=== PATIENT | female | born 1975 | race Asian ===

== ENCOUNTER 2017-03-09 01:36 | Emergency (ER) | payer OTHER ==
[~2017-03-09] VITALS: Ht 182.9 cm; Wt 128.4 kg
[2017-03-09 03:22] VITALS: BP 129/92; TEMP 98.3
== END 2017-03-09 03:23 | disposition home or self-care (01) ==
LOC: ED 01:36
DX: R51 Headache (principal); I10 Essential (primary) hypertension
CPT/HCPCS: 99283

== ENCOUNTER 2017-04-29 17:26 | Emergency (ER) | payer OTHER ==
[~2017-04-29] VITALS: Ht 182.9 cm; Wt 117.9 kg
[2017-04-29 17:38] VITALS: BP 131/98; TEMP 98.7
== END 2017-04-29 18:38 | disposition home or self-care (01) ==
LOC: ED 17:26
DX: K21.9 Gastro-esophageal reflux disease without esophagitis (principal)

== ENCOUNTER 2017-06-20 01:39 | Emergency (ER) | payer OTHER ==
[~2017-06-20] VITALS: Ht 182.9 cm; Wt 124.3 kg
[2017-06-20 02:34] VITALS: BP 132/90; TEMP 98.7
== END 2017-06-20 02:35 | disposition home or self-care (01) ==
LOC: ED 01:39
DX: I10 Essential (primary) hypertension (principal); R51 Headache
CPT/HCPCS: 99282

== ENCOUNTER 2017-10-07 23:05 | Emergency (ER) | payer OTHER ==
[~2017-10-07] VITALS: Ht 182.9 cm; Wt 122.5 kg
[2017-10-08 01:10] VITALS: BP 149/93; TEMP 99
== END 2017-10-08 01:10 | disposition home or self-care (01) ==
LOC: ED 23:05
DX: J32.9 Chronic sinusitis, unspecified (principal); Z72.0 Tobacco use
CPT/HCPCS: 99282

== ENCOUNTER 2018-02-23 23:54 | Emergency (ER) | payer OTHER ==
[~2018-02-23] VITALS: Ht 182.9 cm; Wt 124.7 kg
[2018-02-24 00:12] VITALS: TEMP 98.4
[2018-02-24 02:21] VITALS: BP 138/82
== END 2018-02-24 02:24 | disposition home or self-care (01) ==
LOC: ED 23:54
PROC: 2W3QX1Z Immobilization of Right Lower Leg using Splint (ICD-10-PCS; principal; 2018-02-23)
DX: S93.401A Sprain of unspecified ligament of right ankle, initial encounter (principal); S96.911A Strain of unspecified muscle and tendon at ankle and foot level, right foot, initial encounter; Z87.828 Personal history of other (healed) physical injury and trauma; W19.XXXA Unspecified fall, initial encounter
CPT/HCPCS: 96372; 99283; J1885; J2405; L4350

== ENCOUNTER 2018-02-27 17:09 | Emergency (ER) | payer OTHER ==
[~2018-02-27] VITALS: Ht 182.9 cm; Wt 129.3 kg
[2018-02-27 17:13] VITALS: TEMP 97.8
[2018-02-27 18:08] VITALS: BP 145/87
== END 2018-02-27 18:08 | disposition home or self-care (01) ==
LOC: ED 17:09
DX: R22.0 Localized swelling, mass and lump, head (principal); T46.4X5A Adverse effect of angiotensin-converting-enzyme inhibitors, initial encounter
CPT/HCPCS: 96372; 99282; J1200

== ENCOUNTER 2018-11-20 15:53 | Emergency (ER) | payer OTHER ==
[~2018-11-20] VITALS: Ht 182.9 cm; Wt 113.4 kg
[2018-11-20 16:05] VITALS: BP 170/91; TEMP 100.8
[2018-11-20 16:51] LABS: PLATELET COUNT 242 K/uL (152-353)
[2018-11-20 17:16] LABS: POTASSIUM 3.9 mmol/L (3.6-5.2)
== END 2018-11-20 18:30 | disposition home or self-care (01) ==
LOC: ED 15:53
PROVIDERS: Emergency Medicine
DX: J06.9 Acute upper respiratory infection, unspecified (principal); J11.1 Influenza due to unidentified influenza virus with other respiratory manifestations
CPT/HCPCS: 80053; 81025; 85027; 87502; 87651; 99283

== ENCOUNTER 2018-11-20 23:53 | Emergency (ER) | payer OTHER ==
[~2018-11-20] VITALS: Ht 182.9 cm; Wt 124.7 kg
[2018-11-21 00:14] VITALS: BP 131/87; TEMP 98.5
== END 2018-11-21 00:44 | disposition home or self-care (01) ==
LOC: ED 23:53
DX: J11.1 Influenza due to unidentified influenza virus with other respiratory manifestations (principal)
CPT/HCPCS: 99281

== ENCOUNTER 2018-12-03 11:53 | Emergency (ER) | payer OTHER ==
[~2018-12-03] VITALS: Ht 182.9 cm; Wt 124.7 kg
[2018-12-03 12:00] VITALS: BP 134/99; TEMP 98.4
== END 2018-12-03 12:05 | disposition home or self-care (01) ==
LOC: ED 11:53
DX: I10 Essential (primary) hypertension (principal)
CPT/HCPCS: 99281

== ENCOUNTER 2018-12-04 07:30 | Emergency (ER) | payer OTHER ==
[~2018-12-04] VITALS: Ht 182.9 cm; Wt 124.7 kg
[2018-12-04 07:42] VITALS: TEMP 99.2
[2018-12-04 08:44] LABS: PLATELET COUNT 468 K/uL (152-353)
[2018-12-04 09:23] LABS: POTASSIUM 3.4 mmol/L (3.6-5.2); SODIUM 138 mmol/L (136-145)
[2018-12-04 10:33] VITALS: BP 136/99
== END 2018-12-04 10:33 | disposition home or self-care (01) ==
LOC: ED 07:30
PROVIDERS: Emergency Medicine
DX: M25.511 Pain in right shoulder (principal)
CPT/HCPCS: 36415; 80053; 82550; 82553; 84484; 85027; 93005; 96372; 99283; J1885

== ENCOUNTER 2018-12-06 19:10 | Emergency (ER) | payer OTHER ==
[~2018-12-06] VITALS: Ht 182.9 cm; Wt 124.7 kg
[2018-12-06 19:20] VITALS: TEMP 98.6
[2018-12-06 20:25] VITALS: BP 140/96
== END 2018-12-06 20:25 | disposition home or self-care (01) ==
LOC: ED 19:10
DX: I10 Essential (primary) hypertension (principal); F41.8 Other specified anxiety disorders
CPT/HCPCS: 99281

== ENCOUNTER 2018-12-18 09:31 | Emergency (ER) | payer OTHER ==
[~2018-12-18] VITALS: Ht 182.9 cm; Wt 120.7 kg
[2018-12-18 09:39] VITALS: TEMP 98.8
[2018-12-18 10:02] VITALS: BP 145/93
[2018-12-18] MEDS ORDERED: CLON0.1T16 PO (10:06)
[2018-12-18] MEDS ORDERED: HYDRALAZINE25 MG PO (10:07)
[2018-12-18] MEDS ORDERED: MELOXICAM7.5 MG PO (10:08)
[2018-12-18] MEDS ORDERED: TRAMADOL HYDROC50 MG PO (10:08)
== END 2018-12-18 10:02 | disposition home or self-care (01) ==
LOC: ED 09:31
DX: I10 Essential (primary) hypertension (principal)
CPT/HCPCS: 99281

== ENCOUNTER 2018-12-18 14:16 | Emergency (ER) | payer OTHER ==
[~2018-12-18] VITALS: Ht 182.9 cm; Wt 120.7 kg
[~2018-12-18 14:16] MED LIST: CLON0.1T16 PO; HYDRALAZINE25 MG PO; MELOXICAM7.5 MG PO; TRAMADOL HYDROC50 MG PO
[2018-12-18 14:29] VITALS: TEMP 99
[2018-12-18 14:55] LABS: PLATELET COUNT 336 K/uL (152-353)
[2018-12-18 15:08] LABS: POTASSIUM 3.6 mmol/L (3.6-5.2)
[2018-12-18 16:31] VITALS: BP 134/88
== END 2018-12-18 16:50 | disposition home or self-care (01) ==
LOC: ED 14:16
PROVIDERS: Emergency Medicine
DX: I10 Essential (primary) hypertension (principal)
CPT/HCPCS: 36415; 80053; 85027; 93005; 99283

== ENCOUNTER 2019-02-11 09:21 | Emergency (ER) | payer OTHER ==
[~2019-02-11] VITALS: Ht 182.9 cm; Wt 120.7 kg
[2019-02-11 09:27] VITALS: TEMP 98.1
[2019-02-11] MEDS ORDERED: HYDROCHLOROT12.5 M1 PO (09:39)
[2019-02-11] MEDS ORDERED: AMLODIPINE BESYLATE PO (09:39)
[2019-02-11 10:37] LABS: PLATELET COUNT 325 K/uL (152-353)
[2019-02-11 10:46] LABS: POTASSIUM 3.6 mmol/L (3.6-5.2)
[2019-02-11 12:05] VITALS: BP 112/79
== END 2019-02-11 12:05 | disposition home or self-care (01) ==
LOC: ED 09:21
PROVIDERS: Family Medicine
DX: K64.4 Residual hemorrhoidal skin tags (principal); K62.89 Other specified diseases of anus and rectum
CPT/HCPCS: 36415; 80053; 82272; 85027; 99283

== ENCOUNTER 2020-12-01 12:18 | Emergency (ER) | payer OTHER ==
[~2020-12-01] VITALS: Ht 182.9 cm; Wt 136.1 kg
[~2020-12-01 12:18] MED LIST changes: +AMLODIPINE BESYLATE PO; +HYDROCHLOROT12.5 M1 PO
[2020-12-01 13:03] LABS: PLATELET COUNT 313 K/uL (152-353)
[2020-12-01 13:10] LABS: POTASSIUM 3.5 mmol/L (3.6-5.2); SODIUM 137 mmol/L (136-145)
[2020-12-01 14:21] VITALS: BP 130/83; TEMP 99
== END 2020-12-01 14:22 | disposition home or self-care (01) ==
LOC: ED 12:18
PROVIDERS: Family Medicine
DX: I10 Essential (primary) hypertension (principal); F17.210 Nicotine dependence, cigarettes, uncomplicated
CPT/HCPCS: 80053; 81000; 82550; 82553; 84484; 85027; 93005; 99283

== ENCOUNTER 2021-04-12 14:20 | Emergency (ER) | payer OTHER ==
[2021-04-19 16:37] LABS: PLATELET COUNT 321 K/uL (152-353)
[2021-04-19 16:38] LABS: POTASSIUM 3.9 mmol/L (3.6-5.2)
== END 2021-04-12 17:25 | disposition home or self-care (01) ==
LOC: ED 14:20
PROVIDERS: Family Medicine
DX: K52.89 Other specified noninfective gastroenteritis and colitis (principal); I10 Essential (primary) hypertension; M54.2 Cervicalgia; M25.569 Pain in unspecified knee
CPT/HCPCS: 36415; 80053; 85027; 96374; 96375; 99284; J1885; J2405; J3490

== ENCOUNTER 2021-05-05 22:45 | Emergency (ER) | payer OTHER ==
[~2021-05-05] VITALS: Ht 182.9 cm; Wt 127.0 kg
[2021-05-05 23:00] VITALS: BP 153/94; TEMP 98
== END 2021-05-05 23:05 | disposition home or self-care (01) ==
LOC: ED 22:45
DX: R20.0 Anesthesia of skin (principal); Z01.31 Encounter for examination of blood pressure with abnormal findings; Z53.21 Procedure and treatment not carried out due to patient leaving prior to being seen by health care provider
CPT/HCPCS: 99281

== ENCOUNTER 2021-05-13 14:35 | Emergency (ER) | payer OTHER ==
[~2021-05-13] VITALS: Ht 182.9 cm; Wt 131.5 kg
[2021-05-13 14:45] VITALS: TEMP 99
[2021-05-13 16:48] LABS: PLATELET COUNT 261 K/uL (152-353)
[2021-05-13 17:45] VITALS: BP 122/72
== END 2021-05-13 18:26 | disposition home or self-care (01) ==
LOC: ED 14:35
PROVIDERS: Family Medicine
DX: R53.83 Other fatigue (principal); F41.8 Other specified anxiety disorders; Z20.822 Contact with and (suspected) exposure to COVID-19
CPT/HCPCS: 80053; 81000; 85027; 87635; 99283; U0003

== ENCOUNTER 2022-11-01 19:04 | Emergency (ER) | payer OTHER ==
[~2022-11-01] VITALS: Ht 182.9 cm; Wt 158.8 kg
[2022-11-01 19:22] VITALS: BP 133/98; TEMP 98.7
== END 2022-11-01 21:26 | disposition home or self-care (01) ==
LOC: ED 19:04
DX: J20.9 Acute bronchitis, unspecified (principal); F17.210 Nicotine dependence, cigarettes, uncomplicated
CPT/HCPCS: 87502; 87635; 87651; 94664; 99282; U0001